=== PATIENT | female | born 1985 | race Caucasian/White ===

== ENCOUNTER 2019-01-23 20:10 | Emergency (ER) | payer OTHER ==
[2019-01-23 20:48] VITALS: BP 132/81; PULSE 98; TEMP 98.4; BMI 31.8
--- NOTE | 2019-01-23 20:53 | PDOC ---
History of Present Illness - General Stated Complaint: UTI w/ fever Time Seen by Provider: 01/23/19 20:24 - History of Present Illness Initial Comments: 01/23/19 20:53 33yo F hx paraplegia (2/2 spinal surgery for scoliosis) BIBA c/o UTI sx and difficulty with the straight catheter x4 days. Pt states she has been paraplegic for 19yrs and for that entire time using a straight cath on herself every 12hrs without issue. Occasionally when she does not use it every 12hrs, she gets a UTI approximately once every 3 months, with sx presenting as suprapubic pain, nausea, vomiting, fever, and slight burning sensation ( difficult to feel due to paraplegia). Pt states it is always treated with macrobid due to her allergies and it always resolves. Last UTI was 2 weeks ago and pt was treated with Macrobid which resolved sx. On Saturday this wk pt ran out of catheters (due to hoarding behaviours) and couldn't cath self so has been retaining urine and leaking urine. Also endorses worsening UTI sx since saturday, including suprapubic discomfort/pressure b/l constant, nausea, 1 episode of NBNB emesis today, slight lightheadedness, and subjective fever. Pt has been tolerating PO. Denies chills, WOODY, dizziness, CP, SOB, flank pain, hematuria, D/C, blood in stool, new numbness/tingling, new weakness. Today pt got her 14Fr catheters again and pt was unable to cath self because felt like it was blocked or could only go partially in. States this has never happened before. Urologist Dr Gould - appt on March 18. Past History - Past Medical History Allergies/Adverse Reactions: Allergies Allergy/AdvReac Type Severity Reaction Status Date / Time diphenhydramine HCl Allergy Intermediate Hives Verified 09/11/12 22:17 [From Benadryl] latex Allergy Intermediate Rash Verified 09/11/12 22:17 amoxicillin [From Augmentin] Allergy Verified 01/23/19 20:56 ciprofloxacin [From Cipro] Allergy Verified 01/23/19 20:56 clavulanic acid Allergy Verified 01/23/19 20:56 [From Augmentin] Sulfa (Sulfonamide Allergy Verified 01/23/19 20:56 Antibiotics) Home Medications: Ambulatory Orders Cyanocobalamin Vit B-12 Inj. [Redisol] 1,000 mcg IM WEEKLY 01/23/19 Folic Acid 1 mg PO DAILY 01/23/19 Naproxen [Naprosyn -] 375 mg PO BID PRN 01/23/19 Nitrofurantoin Monohyd/M-Cryst [Macrobid -] 100 mg PO BID 7 Days #14 capsule Nitrofurantoin Monohyd/M-Cryst [Nitrofurantoin [place]kin-Mcr 100 mg] 100 mg PO DAILY 01/23/19 147/Iron/Folic Acid [Azesco Tablet] 1 each PO DAILY 01/23/19 Anemia: No Asthma: No Cancer: No COPD: No Other medical history: parapalegic - Surgical History Orthopedic Surgery: Yes (scoliosis repair) - Immunization History Td Vaccination: Yes Immunization Up to Date: Yes - Suicide/Smoking/Psychosocial Hx Smoking Status: No Smoking History: Never smoked Years of Tobacco Use: 0 Number of Cigarettes Smoked Daily: 0 Cigars Per Day: 0 Hx Alcohol Use: No Drug/Substance Use Hx: No Substance Use Type: None Review of Systems - Review of Systems Comments:: 01/23/19 23:33 Constitutional: Positive for subjective fever. Negative for chills, fatigue. HENT: Negative for sore throat, rhinorrhea, congestion. Eyes: Negative for visual disturbance. Respiratory: Negative for shortness of breath, cough, and wheezing. Cardiovascular: Negative for chest pain, palpitations, and leg swelling. Gastrointestinal: Positive for suprapubic pain, nausea, and vomiting. Negative for blood in stool, constipation, diarrhea. Genitourinary: Positive for dysuria. Negative for flank pain, and hematuria. Musculoskeletal: Negative for myalgias, back pain, and neck pain. Skin: Negative for rash. Neurological: Positive for light-headedness. Negative for dizziness, syncope, new weakness, new numbness and headaches. Psychiatric/Behavioral: Negative for behavioral problems and confusion. *Physical Exam - Vital Signs Last Vital Signs Temp Pulse Resp BP Pulse Ox 98.4 F 98 H 18 132/81 100 01/23/19 20:38 01/23/19 20:38 01/23/19 20:38 01/23/19 20:38 01/23/19 20:38 - Physical Exam Comments: 01/23/19 23:34 Gen: Alert, NAD, comfortable-appearing. HEENT: PERRL, EOMI, MMM, NCAT. No conjunctival pallor. Sclera are non-icteric. CV: Regular rate and rhythm. No murmurs, rubs, or gallops. PULM: No resp distress. CTAB, no wheezes, rales, or rhonchi. ABD: +suprapubic TTP, soft, ND, no rebound tenderness or guarding, no CVA tenderness. MSK: No bony deformities. 2+ pulses in all extremities. NEURO: AAOx3. PERRL. No gross CN deficits. Strength and sensation grossly intact in UEs. No strength or sensation in LEs. EXTREMITIES: No cyanosis. No clubbing. No edema. No calf tenderness. PSYCH: Normal mood and thought pattern. SKIN: Warm and dry. Normal capillary refill. No rashes. No jaundice. Medical Decision Making - Medical Decision Making 01/23/19 23:24 33yo F hx paraplegia (2/2 spinal surgery for scoliosis) BIBA c/o UTI sx and difficulty with the straight catheter x4 days. Pt states she has been paraplegic for 19yrs and for that entire time using a straight cath on herself every 12hrs without issue. Occasionally when she does not use it every 12hrs, she gets a UTI approximately once every 3 months, with sx presenting as suprapubic pain, nausea, vomiting, fever, and slight burning sensation ( difficult to feel due to paraplegia). Pt states it is always treated with macrobid due to her allergies and it always resolves. Last UTI was 2 weeks ago and pt was treated with Macrobid which resolved sx. On Saturday this wk pt ran out of catheters (due to hoarding behaviours) and couldn't cath self so has been retaining urine and leaking urine. Also endorses worsening UTI sx since saturday, including suprapubic discomfort/pressure b/l constant, nausea, 1 episode of NBNB emesis today, slight lightheadedness, and subjective fever. Pt has been tolerating PO. Denies chills, WOODY, dizziness, CP, SOB, flank pain, hematuria, D/C, blood in stool, new numbness/tingling, new weakness. Today pt got her 14Fr catheters again and pt was unable to cath self because felt like it was blocked or could only go partially in. States this has never happened before. Urologist Dr Gould - appt on March 18. Hemodynamically stable, afebrile, mild TTP b/l suprapubic, no CVA tenderness. Most likely UTI due to hx of UTIs and consistency with prior sx - UA/UC. No fever, PO intolerance, or flank pain concerning for pyelonephritis or systemic infection. No hematuria or flank pain concerning for kidney stones - confirm lack of hematuria with UA. Obstruction most likely 2/2 sediment/debris from UTI - bladder POCUS and attempt cath with larger straight cath (pt currently uses 14Fr). Pending POCUS and cath, consider other etiologies of obstruction including muscle spasm, pelvic organ prolapse, or pelvic mass. -Bladder POCUS -Straight cath and UA/UC -Dispo: likely d/c home pending w/u POCUS done: some sediment present in bladder, normal appearing bladder, 93ml bladder volume Cath done and urine drained. Sediment in small catheter most likely cause of obstruction/difficulty drainnig. UA positive for UTI. Start macrobid and d/c home w/urology f/u. Will dc home with supportive treatment. Return precautions and dc instructions given by Dr Key *DC/Admit/Observation/Transfer Diagnosis at time of Disposition: UTI (urinary tract infection) Qualifiers: Urinary tract infection type: acute cystitis Hematuria presence: without hematuria Qualified Code(s): N30.00 - Acute cystitis without hematuria - Prescriptions Prescriptions: Nitrofurantoin Monohyd/M-Cryst [Macrobid -] 100 mg PO BID 7 Days #14 capsule - Referrals Referrals: Hiram Flores MD [Primary Care Provider] - - Patient Instructions Printed Discharge Instructions: DI for Urinary Tract Infection (UTI) Additional Instructions: 1) Please follow-up with your primary care doctor in the next 1-2 days. Please call tomorrow for for any urgent issues. you should also see your urologist make sure to maintain your catheterization of urine 2) You were given a copy of the tests performed today. Please bring the results with you and review them with your primary care doctor. follow up on your urine cultures for the organism 3) If you have any worsening of symptoms or any other concerns please return to the ED immediately. Return if worsening symptoms including fevers, inability to urinate/pain, headache, vomiting, visual or hearing disturbances, abdominal pain , chest pain, shortness of breath, syncope, dehydration, inability to take things by mouth/vomiting, altered mental status, or worsening concerning symptoms. 4) Please continue taking your home medications as directed. your medications on discharge include Macrobid twice a day x 1 week . side effects may include upset stomach, abdominal pain, vomiting, or diarrhea. do not drink alcohol with your medications. Stay well hydrated and rest adequately. - Post Discharge Activity
--- NOTE | 2019-01-23 21:48 | PDOC ---
Documentation entered by Nathan Macias SCRIBE, acting as scribe for Bria Key MD. Bria Key MD: This documentation has been prepared by the Gilberto hathaway Xhesika, SCRIBE, under my direction and personally reviewed by me in its entirety. I confirm that the documentation accurately reflects all work, treatment, procedures, and medical decision making performed by me. Attending Attestation - Resident Resident Name: MargoreyGiuliana - ED Attending Attestation I have performed the following: I have examined & evaluated the patient, The case was reviewed & discussed with the resident, I agree w/resident's findings & plan - HPI HPI: 01/23/19 20:49 The patient is a 33 year old female with a significant past medical history of scoliosis s/p surgery, LE paraplegia wheelchair dependent who presents to the ED BIBA with 1 week of supraubic pressure and urgency. Patient states she was unable to straight cath since Saturday. Patient states that 2 weeks ago she endorsed similar symptoms, received Macrobid, finished course, and her symptoms have recurred. Denies fever, chills, chest pain, SOB, palpitation, dizziness, weakness, N, V, D , abdominal pain. No sick contacts or travel. No new changes in medications. Allergies: Diphenhydramine HCL, latex Social history: Lives with family. No tobacco, ETOH or drug use. Meds: as documented in EMR - Physicial Exam PE: 01/23/19 20:50 Agree with the resident's HPI and PE as documented in the electronic medical record. NAD, well appearing, EOMI, PERRL, MMM, nl conjunctiva, anicteric; neck supple. lungs clear, RRR, (+) suprapubic tenderness. No rebound, no guarding. abdomen soft nontender. Back nontender. No CVA tenderness. LEDEZMA x4, no focal neuro deficits. (+) paraplegia. No peripheral edema. normal color for ethnicity, WWP. - Medical Decision Making 01/23/19 21:44 Vital Signs Temp Pulse Resp BP Pulse Ox 98.4 F 98 H 18 132/81 100 01/23/19 20:38 01/23/19 20:38 01/23/19 20:38 01/23/19 20:38 01/23/19 20:38 ddx pyelo, cystitis, nontoxic appearing, no upper abdomen or flank or CVAT, so doubt pyelo no systemic findings bedside pocus bladder with volume 93cc, debris layering in bladder, no e/o urinary retention. straight cath urine for 16 fr. could be obstructed from debris, so larger german catheter to be used to empty bladder check UA macrobid abx x 1 week course. f/u urine culture, and urologist no prior urine culture, but has multiple allergies to abx so judiciously chosen macrobid due to it working for prior UTI previously. 01/23/19 21:49 *DC/Admit/Observation/Transfer Diagnosis at time of Disposition: UTI (urinary tract infection) Qualifiers: Urinary tract infection type: acute cystitis Hematuria presence: without hematuria Qualified Code(s): N30.00 - Acute cystitis without hematuria - Discharge Dispostion Disposition: HOME Condition at time of disposition: Improved Decision to Admit order: No - Prescriptions Prescriptions: Nitrofurantoin Monohyd/M-Cryst [Macrobid -] 100 mg PO BID 7 Days #14 capsule - Referrals Referrals: Hiram Flores MD [Primary Care Provider] - - Patient Instructions Printed Discharge Instructions: DI for Urinary Tract Infection (UTI) Additional Instructions: 1) Please follow-up with your primary care doctor in the next 1-2 days. Please call tomorrow for for any urgent issues. you should also see your urologist make sure to maintain your catheterization of urine 2) You were given a copy of the tests performed today. Please bring the results with you and review them with your primary care doctor. follow up on your urine cultures for the organism 3) If you have any worsening of symptoms or any other concerns please return to the ED immediately. Return if worsening symptoms including fevers, inability to urinate/pain, headache, vomiting, visual or hearing disturbances, abdominal pain , chest pain, shortness of breath, syncope, dehydration, inability to take things by mouth/vomiting, altered mental status, or worsening concerning symptoms. 4) Please continue taking your home medications as directed. your medications on discharge include Macrobid twice a day x 1 week . side effects may include upset stomach, abdominal pain, vomiting, or diarrhea. do not drink alcohol with your medications. Stay well hydrated and rest adequately. - Post Discharge Activity
[2019-01-23 22:26] LABS: EPI CELLS 4.1 /HPF (0-5/HPF); HYALINE CASTS 8 /lpf (0-8); PH,URINE >= 9.0 (5.0-8.0); URINE APPEARANCE CLEAR; URINE BACTERIA 482.4 /hpf (NEGATIVE); URINE BILIRUBIN NEGATIVE (NEGATIVE); URINE COLOR YELLOW; URINE GLUCOSE (UA) NEGATIVE (NEGATIVE); URINE KETONE TRACE (NEGATIVE); URINE LEUK ESTERASE 3+ (NEGATIVE); URINE NITRITE NEGATIVE (NEGATIVE); URINE PROTEIN TRACE (NEGATIVE); URINE RBC 8 /hpf (0-4); URINE UROBILINOGEN 0.2 mg/dL (0.2-1.0); URINE WBC 215 /hpf (0-5)
[2019-01-23] MEDS ORDERED: NITROFURANTOIN MACROCRYSTAL 50 MG CAPSULE (FP) PO SCH (22:30)
[2019-01-23] MEDS ORDERED: NITROFURANTOIN MACROCRYSTAL 50 MG CAPSULE (FP) ONE (22:32)
== END 2019-01-23 22:37 | disposition home or self-care (01) ==
LOC: JER 20:10
DX: N30.00 Acute cystitis without hematuria (principal); G82.20 Paraplegia, unspecified; Z99.3 Dependence on wheelchair
CPT/HCPCS: 76857; 81003; 87077; 87086; 87186; 99282-25

== ENCOUNTER 2021-06-06 22:00 | Emergency (ER) | payer OTHER ==
[2021-06-06 22:09] VITALS: BP 135/90; PULSE 100; TEMP 97.7; BMI 35.6
[2021-06-06] MEDS ORDERED: ALBUTEROL SO4 2.5/IPRATROPIUM 0.5 INH SOL 3 ML VIAL.NEB. NEB ONE ×2 (23:08→23:31)
[2021-06-06] MEDS ORDERED: methylPREDNISolone NA SUCC 125 MG/2 ML VIAL IVPB ONE (23:08)
[2021-06-06] MEDS ORDERED: methylPREDNISolone NA SUCC 125 MG/2 ML VIAL ONE (23:31)
== END 2021-06-07 00:45 | disposition home or self-care (01) ==
LOC: JERFT 22:00 → MERGE 22:00 → JERFT 06-07 00:45
PROC: 3E0337Z Introduction of Electrolytic and Water Balance Substance into Peripheral Vein, Percutaneous Approach (ICD-10-PCS; principal; 2021-06-06)
DX: J45.901 Unspecified asthma with (acute) exacerbation (principal)
CPT/HCPCS: 71045-TC-FY; 96374; 99284-25

== ENCOUNTER 2021-07-30 20:17 | Emergency (ER) | payer OTHER ==
[2021-07-30 20:24] VITALS: TEMP 98.6; BMI 34.6
[2021-07-30] MEDS ORDERED: LIDOCAINE 5% TOPICAL PATCH TP ONE (21:42)
[2021-07-30] MEDS ORDERED: ACETAMINOPHEN 1000 MG/100 ML BAG IVPB ONE (21:42)
[2021-07-30] MEDS ORDERED: ACETAMINOPHEN INJECTION 100 ML IVPB ONE (21:53)
[2021-07-30] MEDS ORDERED: LIDOCAINE 5% TOPICAL PATCH ONE (21:53)
[2021-07-30] MEDS ORDERED: LIDOCAINE PATCH REMOVAL MC SCH (22:00)
[2021-07-30 22:45] LABS: BASO % 1.1 % (0-2.0); EOS % 6.1 % (0-4.5); HEMATOCRIT 40.2 % (32.4-45.2); HEMOGLOBIN 13.6 GM/dL (10.7-15.3); LYMPH % 31.4 % (8-40); MCH 30.4 pg (25.7-33.7); MCHC 33.9 g/dl (32.0-36.0); MEAN CELL VOLUME 89.6 fl (80-96); MEAN PLT VOLUME 8.5 fl (7.5-11.1); MONO % 7.7 % (3.8-10.2); NEUT % 53.7 % (42.8-82.8); PLATELET COUNT 354 10^3/uL (134-434); RBC 4.49 M/mm3 (3.60-5.2); RDW 12.7 % (11.6-15.6); WHITE BLOOD COUNT 10.2 K/mm3 (4.0-10.0)
[2021-07-30 22:55] LABS: EPI CELLS >36 /uL (0-25.1); HYALINE CASTS 1 /uL (0-3.1); URINE APPEARANCE TURBID; URINE BACTERIA >9,000 /uL (0-1359); URINE BILIRUBIN NEGATIVE (NEGATIVE); URINE COLOR YELLOW; URINE GLUCOSE (UA) NEGATIVE (NEGATIVE); URINE KETONE NEGATIVE (NEGATIVE); URINE LEUK ESTERASE 3+ (NEGATIVE); URINE NITRITE POSITIVE (NEGATIVE); URINE PROTEIN 1+ (NEGATIVE); URINE RBC 63 /uL (0-23.9); URINE WBC 3157 /uL (0-25.8)
[2021-07-30 22:56] LABS: INR 0.99 (0.83-1.09); PROTHROMBIN TIME (PATIENT) 11.4 SEC (9.7-13.0)
[2021-07-30 22:58] LABS: ACTIVATED PTT 33.9 SECONDS (25.2-36.5)
[2021-07-30 23:06] LABS: CHLORIDE 106 mmol/L (98-107); SODIUM 137 mmol/L (136-145)
[2021-07-30 23:07] VITALS: BP 123/78; PULSE 86
[2021-07-30 23:09] LABS: ALBUMIN 3.9 g/dl (3.4-5.0); ANION GAP 5 MMOL/L (8-16); BLOOD UREA NITROGEN 9.1 mg/dL (7-18); CO2 26 mmol/L (21-32); GLUCOSE,RANDOM 81 mg/dL (74-106)
[2021-07-30 23:12] LABS: CREATININE 0.9 mg/dL (0.55-1.3); SGOT/AST 21 U/L (15-37); SGPT/ALT 22 U/L (13-61)
[2021-07-30 23:13] LABS: BILIRUBIN,TOTAL 0.5 mg/dL (0.2-1); TOT PROT 7.7 g/dl (6.4-8.2)
[2021-07-30 23:14] LABS: ALK PHOS 93 U/L (45-117)
[2021-07-30 23:36] LABS: HCG,QUALITATIVE URINE Negative
== END 2021-07-31 00:35 | disposition home or self-care (01) ==
LOC: JER 20:17 → MERGE 20:17 → JER 07-31 00:35
PROC: 3E033GC Introduction of Other Therapeutic Substance into Peripheral Vein, Percutaneous Approach (ICD-10-PCS; principal; 2021-07-30)
DX: N39.0 Urinary tract infection, site not specified (principal)
CPT/HCPCS: 36415; 80053; 81003; 84484; 84702; 84703; 85025; 85610; 85730; 87086; 87186; 93005; 93010; 96374; 99285-25

== ENCOUNTER 2021-08-02 11:02 | Observation (INO) | payer OTHER ==
[2021-08-02 11:54] VITALS: TEMP 98.7; BMI 35.6
[2021-08-02 13:18] LABS: BASO % 0.6 % (0-2.0); HEMATOCRIT 40.6 % (32.4-45.2); HEMOGLOBIN 13.8 GM/dL (10.7-15.3); LYMPH % 21.7 % (8-40); MCH 30.8 pg (25.7-33.7); MEAN CELL VOLUME 90.6 fl (80-96); MEAN PLT VOLUME 8.4 fl (7.5-11.1); MONO % 7.6 % (3.8-10.2); NEUT % 68.1 % (42.8-82.8); RBC 4.48 M/mm3 (3.60-5.2); RDW 12.9 % (11.6-15.6); WHITE BLOOD COUNT 8.7 K/mm3 (4.0-10.0)
[2021-08-02 13:46] LABS: ALBUMIN 3.6 g/dl (3.4-5.0); CALCIUM 8.8 mg/dL (8.5-10.1)
[2021-08-02 13:49] LABS: CREATININE 0.8 mg/dL (0.55-1.3)
[2021-08-02 13:51] LABS: BILIRUBIN,TOTAL 0.2 mg/dL (0.2-1); TOT PROT 7.2 g/dl (6.4-8.2)
[2021-08-02] MEDS ORDERED: ACETAMINOPHEN 1000 MG/100 ML BAG IVPB ONE (14:09)
[2021-08-02] MEDS ORDERED: ACETAMINOPHEN 500 MG TABLET (FP) PO ONE (14:11)
[2021-08-02 15:11] LABS: EPI CELLS >36 /uL (0-25.1); HYALINE CASTS 1 /uL (0-3.1); URINE APPEARANCE CLOUDY; URINE BACTERIA 1283 /uL (0-1359); URINE BILIRUBIN NEGATIVE (NEGATIVE); URINE COLOR YELLOW; URINE GLUCOSE (UA) NEGATIVE (NEGATIVE); URINE KETONE NEGATIVE (NEGATIVE); URINE LEUK ESTERASE 2+ (NEGATIVE); URINE NITRITE NEGATIVE (NEGATIVE); URINE PROTEIN NEGATIVE (NEGATIVE); URINE RBC 24 /uL (0-23.9); URINE WBC 1235 /uL (0-25.8)
[2021-08-02] MEDS ORDERED: MEROPENEM 1 GM in DEXTROSE 5%-WATER 100 ML IVPB ONE (16:07)
[2021-08-02] MEDS ORDERED: MEROPENEM 1 GM VIAL (RESTRICTED TO ID) IVPB ONE (16:59)
[2021-08-02] MEDS ORDERED: ACETAMINOPHEN INJECTION 100 ML IVPB ONE (17:10)
[2021-08-02] MEDS ORDERED: CEFUROXIME AXETIL 500 MG TABLET PO SCH (19:38)
[2021-08-02 23:27] VITALS: BP 120/76; PULSE 82
== END 2021-08-02 22:30 | disposition home or self-care (01) ==
LOC: JER 11:02 → JERBED 17:05 → UNDOADMOB 17:05 → INTOOBSV 17:05 → JERBED 19:34
PROVIDERS: ADMIT Internal Medicine; ATTEND Internal Medicine
PROC: 3E03329 Introduction of Other Anti-infective into Peripheral Vein, Percutaneous Approach (ICD-10-PCS; principal; 2021-08-02)
PROC: 3E033NZ Introduction of Analgesics, Hypnotics, Sedatives into Peripheral Vein, Percutaneous Approach (ICD-10-PCS; 2021-08-02)
DX: R50.9 Fever, unspecified (principal); R11.2 Nausea with vomiting, unspecified; Z88.8 Allergy status to other drugs, medicaments and biological substances; Z91.018 Allergy to other foods; N12 Tubulo-interstitial nephritis, not specified as acute or chronic; F41.9 Anxiety disorder, unspecified; J30.2 Other seasonal allergic rhinitis; Z87.440 Personal history of urinary (tract) infections; M41.9 Scoliosis, unspecified
CPT/HCPCS: 36415; 80053; 81003; 82962; 85025; 87086; 93005; 93010; 96365; 96375; 99285-25; C9803; G0378; U0003; U0005

== ENCOUNTER 2021-08-21 20:37 | Emergency (ER) | payer OTHER ==
[2021-08-21 20:54] VITALS: BP 137/94; PULSE 78; TEMP 98.1; BMI 35.6
== END 2021-08-21 22:05 | disposition home or self-care (01) ==
LOC: JER 20:37 → JERFT 20:37
DX: N64.4 Mastodynia (principal)
CPT/HCPCS: 99281-25

== ENCOUNTER 2021-09-07 00:06 | Emergency (ER) | payer OTHER ==
[2021-09-07 00:12] VITALS: BP 128/79; PULSE 90; TEMP 97.6; BMI 29.2
[2021-09-07] MEDS ORDERED: predniSONE 20 MG TABLET (UD) PO ONE (00:37)
[2021-09-07] MEDS ORDERED: predniSONE 20 MG TABLET (UD) ONE (01:03)
== END 2021-09-07 01:24 | disposition home or self-care (01) ==
LOC: JER 00:06
DX: T78.40XA Allergy, unspecified, initial encounter (principal)
CPT/HCPCS: 99283-25

== ENCOUNTER 2021-09-11 20:06 | Emergency (ER) | payer OTHER ==
[2021-09-11 20:31] VITALS: BP 152/98; PULSE 103; TEMP 98.6; BMI 32.2
== END 2021-09-11 23:24 | disposition home or self-care (01) ==
LOC: JERFT 20:06
DX: L30.9 Dermatitis, unspecified (principal)
CPT/HCPCS: 99283-25

== ENCOUNTER 2021-09-25 22:01 | Emergency (ER) | payer OTHER ==
[2021-09-25 22:22] VITALS: BP 139/65; PULSE 87; TEMP 99; BMI 30.2
[2021-09-25] MEDS ORDERED: predniSONE 20 MG TABLET (UD) PO ONE ×2 (23:09→23:12)
[2021-09-25] MEDS ORDERED: predniSONE 20 MG TABLET (UD) ONE (23:23)
== END 2021-09-25 23:38 | disposition home or self-care (01) ==
LOC: JER 22:01
DX: T78.40XA Allergy, unspecified, initial encounter (principal)
CPT/HCPCS: 99283-25

== ENCOUNTER 2021-10-20 21:56 | Emergency (ER) | payer OTHER ==
[2021-10-20] MEDS ORDERED: predniSONE 20 MG TABLET (UD) PO ONE (22:17)
[2021-10-20] MEDS ORDERED: predniSONE 20 MG TABLET (UD) ONE (22:21)
[2021-10-20 22:24] VITALS: BP 121/67; PULSE 125; TEMP 98; BMI 32.4
== END 2021-10-20 23:26 | disposition home or self-care (01) ==
LOC: JER 21:56
DX: T78.40XA Allergy, unspecified, initial encounter (principal)
CPT/HCPCS: 99283-25

== ENCOUNTER 2021-11-08 21:34 | Emergency (ER) | payer OTHER ==
[2021-11-08 21:50] VITALS: BP 126/87; PULSE 83; TEMP 98.5; BMI 35.6
== END 2021-11-08 22:49 | disposition home or self-care (01) ==
LOC: JER 21:34
DX: L98.8 Other specified disorders of the skin and subcutaneous tissue (principal)
CPT/HCPCS: 99283-25

== ENCOUNTER 2021-11-23 21:02 | Emergency (ER) | payer OTHER ==
[2021-11-23 21:37] VITALS: BP 117/75; PULSE 99; TEMP 98.2; BMI 31.4
== END 2021-11-23 23:29 | disposition home or self-care (01) ==
LOC: JER 21:02
DX: R05.1 Acute cough (principal); R07.9 Chest pain, unspecified
CPT/HCPCS: 71045-TC-FY; 99285-25

== ENCOUNTER 2021-11-29 21:22 | Emergency (ER) | payer OTHER ==
[2021-11-29 21:30] VITALS: BP 128/82; PULSE 100; TEMP 98.1; BMI 29.9
[2021-11-29] MEDS ORDERED: methylPREDNISolone NA SUCC 125 MG/2 ML VIAL IVPUSH ONE (21:35)
[2021-11-29] MEDS ORDERED: DEXAMETHASONE SOD PHOSPHATE 10 MG/1 ML VIAL IM ONE (21:37)
[2021-11-29] MEDS ORDERED: ALBUTEROL SO4 2.5/IPRATROPIUM 0.5 INH SOL 3 ML VIAL.NEB. NEB ONE (21:39)
[2021-11-29] MEDS ORDERED: DEXAMETHASONE SOD PHOSPHATE 10 MG/1 ML VIAL ONE (21:39)
[2021-11-29] MEDS: ALBUTEROL SO4 2.5/IPRATROPIUM 0.5 INH SOL 3 ML VIAL.NEB. NEB SCH ×3 (21:49→22:01)
[2021-11-29] MEDS ORDERED: DEXAMETHASONE 4 MG TABLET (FP) PO ONE (21:50)
== END 2021-11-29 22:39 | disposition home or self-care (01) ==
LOC: JER 21:22
PROC: 3E0F7GC Introduction of Other Therapeutic Substance into Respiratory Tract, Via Natural or Artificial Opening (ICD-10-PCS; principal; 2021-11-29)
DX: J45.901 Unspecified asthma with (acute) exacerbation (principal)
CPT/HCPCS: 94640; 99285-25

== ENCOUNTER 2022-01-25 15:27 | Emergency (ER) | payer OTHER ==
[2022-01-25 15:47] VITALS: BP 130/83; PULSE 88; RESP 18; BMI 28.3
[2022-01-25] MEDS ORDERED: SODIUM CHLORIDE 1,000 ML IV STA (16:40)
[2022-01-25] MEDS ORDERED: ACETAMINOPHEN 1000 MG/100 ML BAG IVPB ONE (16:40)
[2022-01-25 17:44] LABS: BASO % 0.4 % (0-2.0); EOS % 0.1 % (0-4.5); HEMATOCRIT 37.6 % (32.4-45.2); HEMOGLOBIN 12.4 GM/dL (10.7-15.3); LYMPH % 11.5 % (8-40); MCH 29.5 pg (25.7-33.7); MCHC 32.9 g/dl (32.0-36.0); MEAN CELL VOLUME 89.7 fl (80-96); MEAN PLT VOLUME 9.3 fl (7.5-11.1); MONO % 7.9 % (3.8-10.2); NEUT % 80.1 % (42.8-82.8); PLATELET COUNT 268 10^3/uL (134-434); RBC 4.19 M/mm3 (3.60-5.2); RDW 13.2 % (11.6-15.6); WHITE BLOOD COUNT 12.2 K/mm3 (4.0-10.0)
[2022-01-25 17:52] LABS: CALCIUM 8.7 mg/dL (8.5-10.1)
[2022-01-25] MEDS ORDERED: ACETAMINOPHEN INJECTION 100 ML IVPB ONE (17:52)
[2022-01-25 17:53] LABS: ALBUMIN 3.5 g/dl (3.4-5.0)
[2022-01-25 17:56] LABS: CREATININE 0.8 mg/dL (0.55-1.3)
[2022-01-25 17:58] LABS: BILIRUBIN,TOTAL 0.6 mg/dL (0.2-1); TOT PROT 7.1 g/dl (6.4-8.2)
[2022-01-25 18:31] VITALS: TEMP 100.8
[2022-01-25 19:20] LABS: EPI CELLS >36 /uL (0-25.1); HYALINE CASTS 0 /uL (0-3.1); URINE APPEARANCE CLOUDY; URINE BACTERIA >9,000 /uL (0-1359); URINE BILIRUBIN NEGATIVE (NEGATIVE); URINE COLOR YELLOW; URINE GLUCOSE (UA) NEGATIVE (NEGATIVE); URINE KETONE 1+ (NEGATIVE); URINE LEUK ESTERASE 3+ (NEGATIVE); URINE NITRITE POSITIVE (NEGATIVE); URINE PROTEIN NEGATIVE (NEGATIVE); URINE RBC 16 /uL (0-23.9); URINE WBC 246 /uL (0-25.8)
[2022-01-25] MEDS ORDERED: CEFUROXIME AXETIL 500 MG TABLET PO ONE (19:36)
[2022-01-25 19:48] LABS: HCG,QUALITATIVE URINE Negative
== END 2022-01-25 21:45 | disposition home or self-care (01) ==
LOC: JER 15:27
PROC: 3E033NZ Introduction of Analgesics, Hypnotics, Sedatives into Peripheral Vein, Percutaneous Approach (ICD-10-PCS; principal; 2022-01-25)
PROC: 3E0337Z Introduction of Electrolytic and Water Balance Substance into Peripheral Vein, Percutaneous Approach (ICD-10-PCS; 2022-01-25)
DX: N12 Tubulo-interstitial nephritis, not specified as acute or chronic (principal)
CPT/HCPCS: 36415; 80053; 81003; 84703; 85025; 87086; 87186; 96361; 96374; 99284-25

== ENCOUNTER 2022-02-03 19:27 | Emergency (ER) | payer OTHER ==
[2022-02-03 19:40] VITALS: BP 126/84; PULSE 78; RESP 19; TEMP 97.9; BMI 28.3
[2022-02-03] MEDS ORDERED: NAPROXEN 500 MG TABLET PO ONE (20:20)
[2022-02-03] MEDS ORDERED: NAPROXEN 500 MG TABLET ONE (20:26)
== END 2022-02-03 20:51 | disposition home or self-care (01) ==
LOC: JERFT 19:27
DX: R07.82 Intercostal pain (principal)
CPT/HCPCS: 99283-25

== ENCOUNTER 2024-01-04 18:56 | Emergency (ER) | payer OTHER ==
[2024-01-04 19:17] VITALS: BP 132/88; PULSE 71; RESP 18; TEMP 98.5; BMI 25.5
[2024-01-04] MEDS ORDERED: ALBUTEROL SO4 2.5/IPRATROPIUM 0.5 INH SOL 3 ML VIAL.NEB. NEB ONE (20:12)
[2024-01-04] MEDS ORDERED: ACETAMINOPHEN INJECTION 100 ML IVPB ONE (20:12)
[2024-01-04] MEDS ORDERED: FAMOTIDINE 20 MG/50 ML IVPB 20 MG/50 ML MG IVPB ONE (20:12)
[2024-01-04] MEDS: FAMOTIDINE 20 MG/50 ML IVPB 20 MG/50 ML MG IVPB ONE (20:21)
[2024-01-04] MEDS: ACETAMINOPHEN 1000 MG/100 ML BAG IVPB ONE (20:21)
[2024-01-04 20:34] LABS: BASO % 0.6 % (0-2.0); EOS % 0.4 % (0-4.5); HEMATOCRIT 39.1 % (32.4-45.2); HEMOGLOBIN 13.6 GM/dL (10.7-15.3); MCH 31.8 pg (25.7-33.7); MCHC 34.8 g/dl (32.0-36.0); MEAN CELL VOLUME 91.5 fl (80-96); MEAN PLT VOLUME 8.6 fl (7.5-11.1); MONO % 8.9 % (3.8-10.2); NEUT % 71.1 % (42.8-82.8); PLATELET COUNT 340 10^3/uL (134-434); RBC 4.28 M/mm3 (3.60-5.2); RDW 13.3 % (11.6-15.6); WHITE BLOOD COUNT 10.6 K/mm3 (4.0-10.0)
[2024-01-04] MEDS: ALBUTEROL SO4 2.5/IPRATROPIUM 0.5 INH SOL 3 ML VIAL.NEB. NEB ONE (20:40)
[2024-01-04 20:46] LABS: POTASSIUM 4.4 mmol/L (3.5-5.1)
[2024-01-04 20:48] LABS: ALBUMIN 3.9 g/dl (3.4-5.0); CALCIUM 9.4 mg/dL (8.5-10.1)
[2024-01-04 20:49] LABS: BLOOD UREA NITROGEN 10.2 mg/dL (7-18); MAGNESIUM 1.8 mg/dL (1.8-2.4)
[2024-01-04 20:50] LABS: EPI CELLS >36 /uL (0-25.1); HYALINE CASTS 2 /uL (0-3.1); PH,URINE 5.5 (5.0-8.0); URINE APPEARANCE CLOUDY; URINE BACTERIA 8996 /uL (0-1359); URINE BILIRUBIN NEGATIVE (NEGATIVE); URINE COLOR YELLOW; URINE GLUCOSE (UA) NEGATIVE (NEGATIVE); URINE KETONE 1+ (NEGATIVE); URINE LEUK ESTERASE 1+ (NEGATIVE); URINE NITRITE NEGATIVE (NEGATIVE); URINE PROTEIN NEGATIVE (NEGATIVE); URINE WBC 64 /uL (0-25.8)
[2024-01-04 20:52] LABS: CREATININE 0.7 mg/dL (0.55-1.3)
[2024-01-04 20:53] LABS: BILIRUBIN,TOTAL 0.7 mg/dL (0.2-1); TOT PROT 7.5 g/dl (6.4-8.2)
[2024-01-04] MEDS ORDERED: NITROFURANTOIN MACROCRYSTAL 50 MG CAPSULE (FP) ONE (21:00)
[2024-01-04] MEDS: NITROFURANTOIN MONOHYD/M-CRYST 100 MG CAPSULE PO ONE (21:07)
[2024-01-04 21:25] LABS: URINE RBC 20.3 /uL (0-23.9)
[2024-01-04] MEDS ORDERED: methylPREDNISolone NA SUCC 125 MG/2 ML VIAL ONE (22:45)
[2024-01-04] MEDS: methylPREDNISolone NA SUCC 125 MG/2 ML VIAL IVPUSH ONE (22:50)
== END 2024-01-04 22:54 | disposition home or self-care (01) ==
LOC: JER 18:56
PROC: 3E033GC Introduction of Other Therapeutic Substance into Peripheral Vein, Percutaneous Approach (ICD-10-PCS; principal; 2024-01-04)
PROC: 3E033NZ Introduction of Analgesics, Hypnotics, Sedatives into Peripheral Vein, Percutaneous Approach (ICD-10-PCS; 2024-01-04)
PROC: 3E033GC Introduction of Other Therapeutic Substance into Peripheral Vein, Percutaneous Approach (ICD-10-PCS; 2024-01-04)
PROC: 3E0F7GC Introduction of Other Therapeutic Substance into Respiratory Tract, Via Natural or Artificial Opening (ICD-10-PCS; 2024-01-04)
DX: N39.0 Urinary tract infection, site not specified (principal); R10.84 Generalized abdominal pain; R11.2 Nausea with vomiting, unspecified
CPT/HCPCS: 36415; 80053; 81003; 83735; 84703; 85025; 87086; 94640; 96365; 96375; 99284-25; J0131